=== PATIENT | female | born 1970 | race Caucasian/White ===

== ENCOUNTER 2017-01-08 08:00 | Emergency (ER) | payer OTHER ==
[2017-01-08 08:14] VITALS: BP 145/76
--- NOTE | 2017-01-08 08:38 | UC ---
Complaint Female HPI - HPI Summary HPI Summary: burning on urination x 1 day + frequency , no fever, no chills , no flank pain - History Of Current Complaint Chief Complaint: UCGU Stated Complaint: URINARY COMPLAINT Time Seen by Provider: 01/08/17 08:07 Hx Obtained From: Patient Hx Last Menstrual Period: 12/03/16 ?: No Onset/Duration: Gradual Onset, Lasting Days - 1, Still Present Timing: Constant Severity Initially: Moderate Severity Currently: Moderate Character: Burning Aggravating Factor(s): Urination Alleviating Factor(s): Nothing Associated Signs And Symptoms: Negative: Fever, Back Pain, Vaginal Bleeding/ Discharge, Vaginal Discharge, Nausea, Vomiting(# Of Episodes =), Genital Swelling, Genital Blisters - Allergies/Home Medications Allergies/Adverse Reactions: Allergies Allergy/AdvReac Type Severity Reaction Status Date / Time No Known Allergies Allergy Verified 01/08/17 08:14 Home Medications: Home Medications Ibuprofen TAB* [Advil TAB*] 400 mg PO ONCE PRN 01/08/17 [History Confirmed 01/08] PMH/Surg Hx/FS Hx/Imm Hx Cardiovascular History: Hypertension Cancer History: Breast Cancer - Surgical History Surgical History: Yes Surgery Procedure, Year, and Place: 1971 PATENT DUCTUS. 1975 SIGMOIDOSCOPY BENIGN TUMOR IN RECTUM. 1982 T & A. 2010 LEFT BREAST LUMPECTOMY [facility] - Family History Known Family History: Positive: Hypertension - Social History Alcohol Use: Occasionally Alcohol Amount: 1-2 DRINKS/MONTH Substance Use Type: None Smoking Status (MU): Never Smoked Tobacco Have You Smoked in the Last Year: No Review of Systems Constitutional: Negative Skin: Negative Eyes: Negative ENT: Negative Respiratory: Negative Gastrointestinal: Negative Genitourinary: Dysuria, Frequency Is Patient Immunocompromised?: No All Other Systems Reviewed And Are Negative: Yes Physical Exam Triage Information Reviewed: Yes Appearance: Well-Appearing, No Pain Distress, Well-Nourished Vital Signs: Initial Vital Signs Temp 97.7 F 01/08/17 08:04 Pulse 80 01/08/17 08:04 Resp 20 01/08/17 08:04 BP 145/76 01/08/17 08:04 Vital Signs Reviewed: Yes Eyes: Positive: Conjunctiva Clear ENT: Positive: Normal ENT inspection, Hearing grossly normal, Pharynx normal Neck: Positive: Supple, Nontender, No Lymphadenopathy Respiratory: Positive: Chest non-tender, Lungs clear, Normal breath sounds Cardiovascular: Positive: RRR, No Murmur, Pulses Normal Abdominal Exam: Normal Abdomen Description: Positive: Nontender, Soft. Negative: CVA Tenderness (R), CVA Tenderness (L), Distended, Guarding Bowel Sounds: Positive: Present Skin Exam: Normal Complaint Female Dx - Differential Dx/Diagnosis Provider Diagnoses: uti Discharge - Discharge Plan Condition: Stable Disposition: HOME Prescriptions: Sulfamethox/Trimethoprim DS* [Bactrim DS 800/160 TAB*] 1 tab PO BID #14 tab Patient Education Materials: Urinary Tract Infection in Women (ED) Referrals: Radha Segura NP [Primary Care Provider] - If Needed
== END 2017-01-08 08:42 | disposition home or self-care (01) ==
LOC: UCCORT 08:00
DX: N39.0 Urinary tract infection, site not specified (principal); B96.89 Other specified bacterial agents as the cause of diseases classified elsewhere; I10 Essential (primary) hypertension; Z85.3 Personal history of malignant neoplasm of breast
CPT/HCPCS: 81003; 87077; 87086; 87186; 99212; G0463

== ENCOUNTER 2017-01-11 06:18 | Day surgery (SDC) | payer OTHER ==
[~2017-01-11 06:18] MED LIST: Buffered Lidocaine 0.9% SYRIN* 5 ML/SYR SYRINGE INTRADERM ONE
[2017-01-11] MEDS ORDERED: Buffered Lidocaine 0.9% SYRIN* 5 ML/SYR SYRINGE ONE (06:53)
[2017-01-11] MEDS ORDERED: ceFAZolin 2 GM PREMIX (*) 0 ML IVPB ONE (06:53)
[2017-01-11] MEDS ORDERED: ceFOXitin 2 GM IVPREMIX* 2 GM/50 ML BAG ONE (06:56)
[2017-01-11] MEDS ORDERED: Silver Nitrate/Potassium Nitr* 1 EA STICK ONE (07:33)
[2017-01-11] MEDS ORDERED: Midazolam* 1 MG/ML 5 ML VIAL (5 MG) ONE (07:48)
[2017-01-11] MEDS ORDERED: fentaNYL* 50 MCG/ML 2 ML VIAL (100 MCG VIAL) ONE (07:48)
[2017-01-11 07:55] LABS: Hematocrit 33 % (35-47); Hemoglobin 10.2 g/dl (12.0-16.0); Mean Corpuscular HGB Conc 31 g/dl (31-36); Mean Corpuscular Hemoglobin 22 pg (27-31); Mean Corpuscular Volume 70 fL (80-97); Mean Platelet Volume 8 um3 (7.4-10.4); Red Blood Count 4.73 10^6/ul (4.0-5.4); Red Cell Distribution Width 17 % (10.5-15); White Blood Count 5.5 10^3/ul (3.5-10.8)
[2017-01-11 07:59] LABS: Comments Flag Yes
[2017-01-11 08:00] LABS: Add Diff/Slide Review? Slide Review Added
[2017-01-11] MEDS ORDERED: Ketorolac INJ* 30 MG/ML 1 ML VIAL ONE (08:02)
[2017-01-11] MEDS ORDERED: Propofol* 10 MG/ML 20 ML BTL IV PUSH ONE (08:22)
[2017-01-11 08:54] VITALS: BP 116/84
--- NOTE | 2017-01-12 00:30 | OP ---
DATE OF OPERATION: 01/11/17 - [facility] DATE OF : 70 SURGEON: Ramila Lombardi MD ANESTHESIOLOGIST: Dr. Mortensen. ANESTHESIA: Sedation. PRE-OP DIAGNOSIS: Endometrial mass. POST-OP DIAGNOSIS: Endometrial mass, probable endometrial polyp. OPERATIVE PROCEDURE: Dilation, curettage and hysteroscopic resection of endometrial mass. FLUIDS: 800 cc. URINE OUTPUT: 200 cc of clear yellow urine, deficit 152 cc. ESTIMATED BLOOD LOSS: Minimal. FINDINGS: Revealed a normal-appearing right and left tubal ostia on endometrial mass coming from the anterior uterine wall consistent with an endometrial polyp. Excellent resection of mass. COMPLICATIONS: None apparent. DISPOSITION: Stable to recovery room. DESCRIPTION OF PROCEDURE: The patient was placed in dorsal lithotomy position and then placed in universal Kings stirrups after undergoing sedation and perineum and vagina were prepped and draped in a sterile standard fashion. The patient was identified with universal protocol for correct procedure, patient, and position. Sterile self cath was placed for drainage of clear yellow urine 200 cc. Self cath was removed. Sterile speculum was inserted. Cervix was visualized, grasped on the anterior lip with a single-tooth tenaculum, dilated to #8 Hegar dilator. A hysteroscope was inserted, confirming the presence of an endometrial mass consistent with the appearance of an endometrial polyp extending from the anterior on the uterine wall. At that point, using a light resectoscope, the resection was carried out with MyoSure for complete removal of endometrial polyp. Hysteroscope was then removed. Sharp curettage was performed for excellent sampling. Hysteroscope was then reinserted and confirmed excellent sampling of the endometrial cavity. Hysteroscope was removed. Single-tooth tenaculum was removed. Sterile speculum was removed. All sponge, instrument, and blade counts were correct throughout the case. The patient tolerated the procedure well and went to recovery room in stable condition. [id number]/[facility] #: [id number] MTDD
== END 2017-01-11 09:22 | disposition home or self-care (01) ==
LOC: OR 06:18
PROVIDERS: ATTEND Obstetrics & Gynecology
DX: N84.0 Polyp of corpus uteri (principal); I10 Essential (primary) hypertension; Z79.82 Long term (current) use of aspirin; Z85.3 Personal history of malignant neoplasm of breast
CPT/HCPCS: 36415; 81025; 85025; 86850; 86900; 86901; 88305; A9270-GY; J0690; J0694; J1885; J2250; J2704; J3010

== ENCOUNTER 2017-04-02 17:37 | Emergency (ER) | payer OTHER ==
[2017-04-02 18:12] VITALS: BP 139/94
--- NOTE | 2017-04-02 18:22 | UC ---
Complaint Female HPI - HPI Summary HPI Summary: ONE DAY OF URGENCY, FREQUENCY DYSURIA. - History Of Current Complaint Hx Obtained From: Patient, Family/Computer Training Specialist Hx Last Menstrual Period: 03/23/17 Onset/Duration: Gradual Onset, Lasting Hours Timing: Intermittent Severity Initially: Mild Severity Currently: Mild Character: Dull Aggravating Factor(s): Urination Associated Signs And Symptoms: Negative: Fever, Back Pain, Vaginal Bleeding/ Discharge, Vaginal Discharge, Nausea - Risk Factors Ectopic Risk Factor: Negative Ovarian Torsion Risk Factor: Negative <Fawad Grace - Last Filed: 04/02/17 18:19> <Maia Pablo - Last Filed: 04/02/17 18:23> - History Of Current Complaint Chief Complaint: UCGU Stated Complaint: URINARY Time Seen by Provider: 04/02/17 18:09 - Allergies/Home Medications Allergies/Adverse Reactions: Allergies Allergy/AdvReac Type Severity Reaction Status Date / Time No Known Allergies Allergy Verified 04/02/17 18:06 Home Medications: Home Medications Calcium Carbonate-Cholecalcife [Calcium 600 + D 600-200 mg-Unit] 1 tab PO BID [History Confirmed 04/02/17] [place]-3 Fatty Acids (Nf) [Fish Oil (NF)] 1,000 mg PO DAILY 04/02/17 [History Confirmed 04/02/17] PMH/Surg Hx/FS Hx/Imm Hx Previously Healthy: Yes - Surgical History Surgical History: Yes Surgery Procedure, Year, and Place: Uterine Polyp, 2016, [facility] [place]; Left Breast Lumpectomy, 2010, [place]; T&A, 1982; Sigmoidoscopy with Benign Tumor in Rectum, 1975; Patent Ductus Arteriosus, 1971 - Family History Known Family History: Positive: Hypertension - Social History Occupation: Employed Full-time Lives: With Family Alcohol Use: Occasionally Alcohol Amount: 1-2 DRINKS/MONTH Substance Use Type: None Smoking Status (MU): Never Smoked Tobacco Have You Smoked in the Last Year: No <Fawad Grace - Last Filed: 04/02/17 18:19> Review of Systems Constitutional: Negative Skin: Negative Eyes: Negative ENT: Negative Respiratory: Negative Cardiovascular: Negative Gastrointestinal: Negative Genitourinary: Dysuria, Frequency, Urgency Motor: Negative Neurovascular: Negative Musculoskeletal: Negative Neurological: Negative Psychological: Negative Is Patient Immunocompromised?: No All Other Systems Reviewed And Are Negative: Yes <Fawad Grace - Last Filed: 04/02/17 18:19> Physical Exam Triage Information Reviewed: Yes Appearance: Well-Appearing, No Pain Distress, Well-Nourished Vital Signs: Initial Vital Signs Temp 97.6 F 04/02/17 18:04 Pulse 76 04/02/17 18:04 Resp 16 04/02/17 18:04 BP 139/94 04/02/17 18:04 Pulse Ox 100 04/02/17 18:04 Vital Signs Reviewed: Yes Eye Exam: Normal ENT Exam: Normal ENT: Positive: Hearing grossly normal Dental Exam: Normal Neck exam: Normal Neck: Positive: Supple, Nontender, No Lymphadenopathy Respiratory Exam: Normal Respiratory: Positive: Chest non-tender, Lungs clear, Normal breath sounds, No respiratory distress, No accessory muscle use Cardiovascular Exam: Normal Cardiovascular: Positive: RRR, No Murmur, Pulses Normal, Brisk Capillary Refill Abdominal Exam: Normal Abdomen Description: Positive: Nontender, No Organomegaly, Soft. Negative: CVA Tenderness (R), CVA Tenderness (L) Musculoskeletal Exam: Normal Neurological Exam: Normal Psychological Exam: Normal Skin Exam: Normal <Fawad Grace - Last Filed: 04/02/17 18:19> Vital Signs: Initial Vital Signs Temp 97.6 F 04/02/17 18:04 Pulse 76 04/02/17 18:04 Resp 16 04/02/17 18:04 BP 139/94 04/02/17 18:04 Pulse Ox 100 04/02/17 18:04 <Maia Pablo - Last Filed: 04/02/17 18:23> Complaint Female Dx - Differential Dx/Diagnosis Differential Diagnosis/HQI/PQRI: Urinary Tract Infection Provider Diagnoses: URINARY TRACT INFECTION <Fawad Grace - Last Filed: 04/02/17 18:19> Discharge <Fawad Grace - Last Filed: 04/02/17 18:19> <Maia Pablo - Last Filed: 04/02/17 18:23> - Discharge Plan Condition: Stable Disposition: HOME Prescriptions: Phenazopyridine TAB* [Pyridium 100 mg TAB*] 100 mg PO TID PRN #15 tab PRN Reason: Pain Sulfamethox/Trimethoprim DS* [Bactrim DS 800/160 TAB*] 1 tab PO BID #10 tab Patient Education Materials: Urinary Tract Infection in Women (ED) Referrals: Radha Segura NP [Primary Care Provider] - Attestation Statement User Type: Provider - I was available for consult. This patient was seen by the [facility]. The patient was not presented to, seen by, or examined by me. -Alyssa <Maia Pablo - Last Filed: 04/02/17 18:23>
== END 2017-04-02 18:19 | disposition home or self-care (01) ==
LOC: UCCORT 17:37
DX: N39.0 Urinary tract infection, site not specified (principal); B96.89 Other specified bacterial agents as the cause of diseases classified elsewhere
CPT/HCPCS: 81003; 87077; 87086; 87186; 99212; G0463

== ENCOUNTER 2017-08-20 08:27 | Day surgery (SDC) | payer OTHER ==
[2017-08-20] MEDS ORDERED: ceFAZolin 2 GM PREMIX (*) 2 GM/50 ML BAG IVPB ONE (08:46)
[2017-08-20] MEDS ORDERED: Buffered Lidocaine 0.9% SYRIN* 5 ML/SYR SYRINGE ONE (08:46)
[2017-08-20] MEDS ORDERED: Bupivacaine 0.25% SDV* 30 ML ONE (10:16)
[2017-08-20] MEDS ORDERED: fentaNYL* 50 MCG/ML 2 ML VIAL (100 MCG VIAL) ONE (10:32)
[2017-08-20] MEDS ORDERED: Propofol* 10 MG/ML 20 ML BTL IV PUSH ONE (10:32)
[2017-08-20] MEDS ORDERED: Lidocaine 2% PF * 5 ML VIAL ONE (10:32)
[2017-08-20] MEDS ORDERED: Naloxone* 0.4 MG/ML 1 ML VIAL IV PRN (10:53)
[2017-08-20] MEDS ORDERED: Acetaminophen TAB* 325 MG PO PRN (10:53)
[2017-08-20] MEDS ORDERED: oxyCODONE TAB* 5 MG TAB PO PRN (10:53)
[2017-08-20] MEDS ORDERED: fentaNYL* 50 MCG/ML 2 ML VIAL (100 MCG VIAL) IV PRN (10:53)
[2017-08-20 12:52] VITALS: BP 126/77
--- NOTE | 2017-08-20 14:37 | OP ---
DATE OF OPERATION: 08/20/17 - [facility] DATE OF : 70 SURGEON: Javier Ledezma MD. USPS LETTER CARRIER: CORINNE Freedman. ANESTHESIOLOGIST: Dr. Beck. ANESTHESIA: General. 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 POST-OP DIAGNOSIS: Left ulnar nerve cubital tunnel syndrome. PROCEDURE PERFORMED: Left ulnar nerve decompression at the elbow with anterior transposition. INDICATIONS: Tanja has had progressive symptoms in the ring and small fingers. It seemed to localize to the elbow. We talked about risks and benefits. She wanted to proceed with decompression of the nerve to see if she gets some symptom relief. ESTIMATED BLOOD LOSS: 5 mL. COMPLICATIONS: None. FINDINGS: After decompression, there was instability of the ulnar nerve, so I transposed the nerve. DESCRIPTION OF PROCEDURE: Tanja was seen in the preoperative holding area. The correct side, site, and procedure were identified. We came back to the operating room. The arm was prepped and draped in the usual fashion. A time- out was performed. I exsanguinated the arm with an Esmarch and the tourniquet was inflated to 250 mmHg. I began by making a curvilinear incision centered over Fraire's ligament and extended proximally and distally in line with the nerve. Dissection was carried down through the subcutaneous tissue. The medial antebrachial cutaneous nerve was not encountered. I went ahead and released the fascia just proximal to Fraire's ligament. An appendiceal retractor was placed and the fascia overlying the nerve was released all the way past the arcade of [place]. I then came distally and released the Fraire's ligament. It was obvious that the nerve was frankly compressed under the ligament. I then released the superficial FCU fascia. I split the 2 ends of the FCU and the released the deep fascial, subfascial layer. At this point, there was no more compression on the nerve. I flexed and extended the elbow. The nerve was subluxing upon the medial epicondyle. I therefore performed a neurolysis about the nerve. A fascial loop was used to retract the nerve gently to assist with this. The motor branches to the FCU were identified and mobilized to allow for length. The medial intermuscular septum was excised. The FCU fascia was excised. I went ahead and made double opposing, step cut type fascial flaps in the flexor pronator fascia. The intermuscular septi were excised. I then transposed the nerve anterior on to the muscular bed. The two facial flaps were then sewn end-to-end to keep the nerve in the transposed position. There was absolutely no compression or kinking of the nerve. I checked to make sure there was no kinking proximally or distally. I did excise a little bit of the humeral head of the FCU just to let the nerve lie in a little bit straighter position. Ultimately, there was no compression or kinking of the nerves. So, we irrigated out the wound. The subcutaneous tissue was reapproximated with 3- 0 Vicryl. Skin was closed with 3-0 Monocryl and Steri-Strips. 0.25% Marcaine was infiltrated in to the operative area. The wound was then dressed with Xeroform, 4x4s, ABD, sterile Webril, and a long arm splint, with a lateral buttress applied. She was then awoken up and taken to the recovery room in stable condition. [id number]/[facility] #: [id number] [facility] HOSPITALJoss
== END 2017-08-20 12:56 | disposition home or self-care (01) ==
LOC: OR 08:27
PROVIDERS: ATTEND Orthopaedic Surgery Hand Surgery
DX: G56.22 Lesion of ulnar nerve, left upper limb (principal); I10 Essential (primary) hypertension; Z85.3 Personal history of malignant neoplasm of breast; M19.90 Unspecified osteoarthritis, unspecified site
CPT/HCPCS: 81025; J0690; J2704; J3010

== ENCOUNTER 2018-06-01 10:38 | Emergency (ER) | payer OTHER ==
--- OUTSIDE RECORDS SUMMARY | 2018-06-01 10:48 | XMS REPORT | Continuity of Care Document ---
:1970 External Reference #:[id number] Author Name Lucina Caro Care Team Providers Name Role Phone Desirae Garcia MD Primary Care Physician Unavailable Payers Date Identification Numbers Payment Provider Subscriber Policy Number: [id number] [facility] Tanja Sparks Group Number: [id number] [address] PayID: [id number] [place] [address] Effective: 2008 Policy Number: [id number] [facility] Tanja Sparks PayID: [id number] [address] [place] [address] Advance Directives Description No Information Available Problems Date Description Provider Status Onset: 05/24/2015 Essential hypertension Radha Segura, N.P. 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 ALS, Hyperlipidemia, HTN Second Brother 50 (half brother), SD (48), Hyperlipidemia Social History Type Date Description Comments Sex Unknown Marital Status Occupation Lead Clinical Asst for Practice Management at [employer] Use Currently consumes Twice monthly alcohol Tobacco Use Start: Unknown Patient has never smoked Smoking Status Reviewed: 05/31/18 Patient has never smoked Exercise Type/Frequency Exercises regularly 3 - 6 times weekly Allergies, Adverse Reactions, Alerts Description No Known Drug Allergies Medications Medication Date Status Form Strength Qnty SIG Indications Ordering Provider Ketoconazole 05/31 Active Cream 2% 60gm apply once B35.4 daily to Imelda affected N.P. area Tramadol HCL 08/20 Active Tablets 50mg 30tab 1-2 s tablets by anel Ledezma MD every 6 hours as needed pain Losartan 08/24 Active Tablets 100mg 90tab Take 1 Radha Ferrell s Tablet By Imelda Mouth N.P. Every Day Fish Oil Active Capsules 1000mg 1 tbsp qd Unknown Ibuprofen Active Tablets 200-38mg prn Aspir-[address] 81mg 1 po qd Unknown / Calcium 600 Active Tablets 600mg 1 po qd Multi Complete Active Capsules daily Unknown Trazodone HCL 11/14 Hx Tablets 50mg 30tab 1 tablet G47.00 s at bedtime Varn, - as needed N.P. 07/20 Cipro 11/14 Hx Tablets 250mg 14tab one by N39.0 s sara Segura, - twice N.P. 01 daily for 7 days Cipro 11/18 Hx Tablets 250mg 6tabs one by roxyuth Imelda, - twice N.P. 11/21 daily for 3 days Cipro 08/24 Hx Tablets 250mg 14tab one by 788.41 Radha /2015 s roxyuth Imelda, - twice N.P. 08/31 daily for 7 days Ciprofloxacin HCL 07/16 Hx Tablets 250mg 14tab one by 788.41 Radha /2014 s mouth Imelda, - twice a N.P. 07/23 day for days Cipro 10/09 Hx Tablets 500mg 6tabs one tablet 788.41 twice Pro, - daily for M.D. 10/14 3 days. Losartan 10/09 Hx Tablets 100-25mg 90tab Take 1 Radha Potassium/Hydroch s Tablet Varn, lorothiazide - Daily N.P. 08/24 Losartan 09/06 Hx Tablets 100mg 30tab 1 po qd 401.1 [place] Potassium s Sharee Walker M.D., 10/09 FAC Anucort-HC 07/12 Hx Suppository 25mg 30uni insert 578.1 ts suppositor Denise - y in M.D., 03/11 rectum FAC twice a day as needed Diflucan 09/01 Hx Tablets 150mg 2tabs sig 1 po repeat in Denise, - 3 days if M.D., 10/31 needed FAC Ramipril 07/05 Hx Capsules 5mg 90cap 1 by mouth s daily Sharee Walker M.D., 09/06 FAC Hydrochlorothiazi 05/20 Hx Tablets 25mg 90tab Take One Floresita s Tablet By Denise - Mouth M.DHardik, 10/09 Every Day Tamoxifen Citrate Hx Tablets 20mg 30tab 1 po qd Unknown /0000 s - 05/15 Vitamin D High Hx Capsules 4000Units daily Unknown Potency /0000 - 07/20 Immunizations Description No Information Available Vital Signs Date Vital Result Comment 05/31/2018 4:21pm Height 65.5 inches 5'5.50" Weight 200.00 lb Heart Rate 78 /min BP Systolic 136 mmHg BP Diastolic 84 mmHg Body Temperature 98.1 F O2 % BldC Oximetry 97 % BMI (Body Mass Index) 32.8 kg/m2 01/01/2018 11:29am Height 65.5 inches 5'5.50" Pain Level 0 11/27/2017 8:41am Height 65.5 inches 5'5.50" Weight 195.00 lb Heart Rate 81 /min BP Systolic 122 mmHg BP Diastolic 80 mmHg Body Temperature 98.1 F O2 % BldC Oximetry 96 % BMI (Body Mass Index) 32.0 kg/m2 Waist Circumference 38 10/02/2017 4:22pm Height 67 inches 5'7" Weight 193.00 lb BP Systolic Sitting 140 mmHg BP Diastolic Sitting 88 mmHg Respiratory Rate 16 /min Body Temperature 98.0 F Pain Level 0 BMI (Body Mass Index) 30.2 kg/m2 08/31/2017 8:32am Height 67 inches 5'7" Heart Rate 76 /min BP Systolic 132 mmHg BP Diastolic 80 mmHg Respiratory Rate 16 /min Body Temperature 97.6 F Pain Level 2 08/14/2017 3:09pm Height 67 inches 5'7" Heart Rate 89 /min BP Systolic 130 mmHg BP Diastolic 80 mmHg Respiratory Rate 16 /min Body Temperature 98.3 F Pain Level 1 07/20/2017 10:58am Height 67 inches 5'7" Weight 185.00 lb Heart Rate 82 /min Respiratory Rate 13 /min Body Temperature 99.1 F Pain Level 5 BMI (Body Mass Index) 29.0 kg/m2 07/10/2017 1:18pm Weight 192.00 lb Heart Rate 92 /min BP Systolic 132 mmHg BP Diastolic 68 mmHg Body Temperature 98.5 F O2 % BldC Oximetry 98 % 11/14/2016 8:48am Height 65 inches 5'5" Weight 169.00 lb Heart Rate 79 /min BP Systolic Sitting 120 mmHg BP Diastolic Sitting 68 mmHg Body Temperature 98.3 F O2 % BldC Oximetry 97 % BMI (Body Mass Index) 28.1 kg/m2 05/15/2016 8:45am Weight 170.00 lb Heart Rate 71 /min BP Systolic Sitting 128 mmHg BP Diastolic Sitting 80 mmHg Body Temperature 97.3 F O2 % BldC Oximetry 99 % 11/11/2015 9:13am Height 65 inches 5'5" Weight 166.75 lb Heart Rate 84 /min BP Systolic Sitting 128 mmHg BP Diastolic Sitting 83 mmHg O2 % BldC Oximetry 98 % BMI (Body Mass Index) 27.7 kg/m2 11/16/2014 12:59pm Weight 167.00 lb Heart Rate 83 /min BP Systolic Sitting 138 mmHg BP Diastolic Sitting 85 mmHg Body Temperature 98.7 F 08/24/2014 4:22pm Height 65.5 inches 5'5.50" Weight 166.00 lb Heart Rate 97 /min BP Systolic 138 mmHg BP Diastolic 89 mmHg Body Temperature 98.1 F BMI (Body Mass Index) 27.2 kg/m2 05/18/2014 3:25pm Height 65.5 inches 5'5.50" Weight 166.50 lb Heart Rate 90 /min BP Systolic Sitting 122 mmHg BP Diastolic Sitting 76 mmHg Body Temperature 98.8 F BMI (Body Mass Index) 27.3 kg/m2 10/17/2013 12:00pm Weight 165.00 lb Heart Rate 88 /min BP Systolic Sitting 138 mmHg BP Diastolic Sitting 80 mmHg 07/16/2013 8:49am Weight 171.00 lb Heart Rate 88 /min BP Systolic Sitting 120 mmHg BP Diastolic Sitting 74 mmHg Body Temperature 98.5 F 04/18/2013 9:42am Height 65.75 inches 5'5.75" Weight 159.00 lb Heart Rate 88 /min BP Systolic Sitting 122 mmHg BP Diastolic Sitting 74 mmHg BMI (Body Mass Index) 25.9 kg/m2 10/14/2012 9:12am Weight 162.00 lb Heart Rate 76 /min BP Systolic Sitting 124 mmHg BP Diastolic Sitting 80 mmHg 10/09/2012 9:03am Weight 164.00 lb Heart Rate 80 /min BP Systolic Sitting 124 mmHg BP Diastolic Sitting 70 mmHg Body Temperature 98.9 F 03/11/2012 10:56am Height 67 inches 5'7" Weight 160.00 lb Heart Rate 74 /min BP Systolic Sitting 122 mmHg BP Diastolic Sitting 74 mmHg BMI (Body Mass Index) 25.1 kg/m2 09/07/2011 11:27am Height 67 inches 5'7" Weight 155.00 lb Heart Rate 72 /min BP Systolic Sitting 138 mmHg BP Diastolic Sitting 80 mmHg BMI (Body Mass Index) 24.3 kg/m2 07/13/2011 9:54am Height 67 inches 5'7" Weight 157.00 lb Heart Rate 76 /min BP Systolic Sitting 138 mmHg BP Diastolic Sitting 80 mmHg BMI (Body Mass Index) 24.6 kg/m2 03/10/2011 11:01am Height 67 inches 5'7" Weight 166.00 lb Heart Rate 64 /min BP Systolic Sitting 110 mmHg BP Diastolic Sitting 72 mmHg BMI (Body Mass Index) 26.0 kg/m2 10/31/2010 1:14pm Height 67 inches 5'7" Weight 181.00 lb Heart Rate 66 /min BP Systolic Sitting 122 mmHg BP Diastolic Sitting 74 mmHg BMI (Body Mass Index) 28.3 kg/m2 09/01/2010 10:05am Height 67 inches 5'7" Weight 188.75 lb Heart Rate 72 /min BP Systolic 130 mmHg BP Diastolic 86 mmHg BMI (Body Mass Index) 29.6 kg/m2 07/05/2010 1:59pm Weight 192.75 lb Heart Rate 72 /min BP Systolic 140 mmHg BP Diastolic 84 mmHg 05/20/2010 9:47am Weight 192.00 lb Heart Rate 80 /min BP Systolic 140 mmHg BP Diastolic 86 mmHg 05/04/2010 10:11am Weight 194.00 lb Heart Rate 80 /min BP Systolic 146 mmHg BP Diastolic 94 mmHg O2 % BldC Oximetry 99 % Results Test Date Facility Test Result H/L Range Note Lipid Profile 11/23/2017 [facility] Triglycerides 227 mg/dL 1 (Trig/Chol/HDL) [address] [place] [address] [phone] Cholesterol 211 mg/dL 2 HDL Cholesterol 45.0 mg/dL 3 LDL Cholesterol 121 mg/dL 4 Comp Metabolic Panel 11/23/2017 [facility] Sodium 139 mmol/L N 135-[address] [place] [address] [phone] Potassium 3.9 mmol/L N 3.5-5.0 Chloride 102 mmol/L N 101-111 Co2 Carbon Dioxide 29 mmol/L N 22-32 Anion Gap 8 mmol/L N 2-11 Glucose 90 mg/dL N 70-100 Blood Urea Nitrogen 16 mg/dL N 6-24 Creatinine 0.86 mg/dL N 0.51-0.95 BUN/Creatinine Ratio 18.6 N 8-20 Calcium 9.1 mg/dL N 8.6-10.3 Total Protein 6.4 g/dL N 6.4-8.9 Albumin 4.0 g/dL N 3.2-5.2 Globulin 2.4 g/dL N 2-4 Albumin/Globulin Ratio 1.7 N 1-3 Total Bilirubin 0.40 mg/dL N 0.2-1.0 Alkaline Phosphatase 49 U/L N 34-104 Alt 15 U/L N 7-52 Ast 15 U/L N 13-39 Egfr Non- 70.7 >60 Egfr 85.6 >60 5 Urine Culture And 04/02/2017 [facility] Urine SEE RESULT 6 , [address] [place] [address] [phone] CBC Auto Diff 01/11/2017 [facility] White Blood 5.5 10^3/uL N 3.5-[address] Count 0.8 [place] [address] [phone] Red Blood Count 4.73 10^6/uL N 4.0-5.4 Hemoglobin 10.2 g/dL Low 12.0-16.0 Hematocrit 33 % Low 35-47 Mean Corpuscular Volume 70 fL Low 80-97 Mean Corpuscular Hemoglobin 22 pg Low 27-31 Mean Corpuscular HGB Conc 31 g/dL N 31-36 Red Cell Distribution Width 17 % High 10.5-15 Platelet Count 303 10^3/uL N 150-450 Mean Platelet Volume 8 um3 N 7.4-10.4 Abs Neutrophils 3.0 10^3/uL N 1.5-7.7 Abs Lymphocytes 1.8 10^3/uL N 1.0-4.8 Abs Monocytes 0.5 10^3/uL N 0-0.8 Abs Eosinophils 0.1 10^3/uL N 0-0.6 Abs Basophils 0.1 10^3/uL N 0-0.2 Abs Nucleated RBC 0 10^3/uL N Granulocyte % 54.7 % N 38-83 Lymphocyte % 32.8 % N 25-47 Monocyte % 9.7 % High 1-9 Eosinophil % 1.9 % N 0-6 Basophil % 0.9 % N 0-2 Nucleated Red Blood Cells % 0 N Type & Screen 01/11/2017 [facility] Patient Blood Type A Positive [address] [place] [address] [phone] Antibody Screen NEGATIVE N Urine Culture And 01/08/2017 [facility] Urine Culture SEE RESULT [address] [place] [address] [phone] Urine Culture And 11/14/2016 [facility] Urine Culture SEE RESULT [address] [place] [address] [phone] Ua Routine 11/14/2016 [facility] Ua Specific 1.005 [place] Ua PH 7 Ua Color pale kaitlin Ua Appera clear Ua WBC 1+ Ua Protein neg Ua Glucose neg Ua Ketones neg Ua Bilirubin neg Ua Urobilinogen normal Ua Nitrite neg Ua Occult Blood trace Lipid Profile 11/06/2016 [facility] Triglycerides 97 mg/dL N 11 (Trig/Chol/HDL) [address] [place] [address] [phone] Cholesterol 174 mg/dL N 12 HDL Cholesterol 48.8 mg/dL N 13 LDL Cholesterol 106 mg/dL N 14 Comp Metabolic Panel 11/06/2016 [facility] Sodium 138 mmol/L N 133-145 [address] [place] [address] [phone] Potassium 3.7 mmol/L N 3.5-5.0 Chloride 104 mmol/L N 101-111 Co2 Carbon Dioxide 30 mmol/L N 22-32 Anion Gap 4 mmol/L N 2-11 Glucose 91 mg/dL N 70-100 Blood Urea Nitrogen 18 mg/dL N 6-24 Creatinine 0.80 mg/dL N 0.51-0.95 BUN/Creatinine Ratio 22.5 High 8-20 Calcium 8.9 mg/dL N 8.6-10.3 Total Protein 6.1 g/dL Low 6.4-8.9 Albumin 3.8 g/dL N 3.2-5.2 Globulin 2.3 g/dL N 2-4 Albumin/Globulin Ratio 1.7 N 1-3 Total Bilirubin 0.30 mg/dL N 0.2-1.0 Alkaline Phosphatase 41 U/L N 34-104 Alt 18 U/L N 7-52 Ast 17 U/L N 13-39 Egfr Non- 77.2 N >60 Egfr 99.3 N >60 15 Comp Metabolic Panel 05/14/2015 [facility] Sodium 140 mmol/L N 133-145 [address] [place] [address] [phone] Potassium 3.9 mmol/L N 3.5-5.0 Chloride 102 mmol/L N 101-111 Co2 Carbon Dioxide 33 mmol/L High 22-32 Anion Gap 5 mmol/L N 2-11 Glucose 89 mg/dL N 70-100 Blood Urea Nitrogen 14 mg/dL N 6-24 Creatinine 0.82 mg/dL N 0.51-0.95 BUN/Creatinine Ratio 17.1 N 8-20 Calcium 9.3 mg/dL N 8.6-10.3 Total Protein 6.5 g/dL N 6.4-8.9 Albumin 4.2 g/dL N 3.2-5.2 Globulin 2.3 g/dL N 2-4 Albumin/Globulin Ratio 1.8 N 1-3 Total Bilirubin 0.50 mg/dL N 0.2-1.0 Alkaline Phosphatase 45 U/L N 34-104 Alt 14 U/L N 7-52 Ast 17 U/L N 13-39 Egfr Non- 75.7 N >60 Egfr 97.4 N >60 16 Lipid Profile 05/14/2015 [facility] Triglycerides 147 mg/dL N 17 (Trig/Chol/HDL) [address] [place] [address] [phone] Cholesterol 180 mg/dL N 18 HDL Cholesterol 46.6 mg/dL N 19 LDL Cholesterol 104 mg/dL N 20 Laboratory test 11/16/2014 [facility] Urine Culture And SEE RESULT [address] [place] [address] [phone] Ua Routine 11/16/2014 [facility] Ua Specific [place] 1.010 Ua PH 5 Ua Color pale yellow Ua Appera clear Ua WBC neg Ua Protein neg Ua Glucose neg Ua Ketones neg Ua Bilirubin neg Ua Urobilinogen 0.2 Ua Nitrite neg Ua Occult Blood neg Urinalysis Profile 08/24/2014 [facility] Urine Color Yellow [address] [place] [address] [phone] Urine Appearance Cloudy N Urine Specific [place] 1.009 Low 1.010-1.030 Urine pH 6.0 N 5-9 Urine Urobilinogen Negative N Negative Urine Ketones Trace Abnormal Negative Urine Protein Negative N Negative Urine Leukocytes 3+ Abnormal Negative Urine Blood Negative N Negative Urine Nitrite Negative N Negative Urine Bilirubin Negative N Negative Urine Glucose Negative N Negative Urine White Blood Cell 1+(6-10/hpf) Abnormal Absent Urine Red Blood Cell Trace(0-2/hpf) N Absent Urine Bacteria 1+ Abnormal Absent Urine Squamous Epithelial Cell Present Abnormal Absent Urine Culture And 08/24/2014 [facility] Urine Culture (SEE NOTE ) [address] [place] [address] [phone] Ua Routine 08/24/2014 [facility] Ua Specific 1.010 [place] Ua PH 5 Ua Color yellow Ua Appera clear Ua WBC moderate Ua Protein negative Ua Glucose negative Ua Ketones moderate Ua Bilirubin negative Ua Urobilinogen normal Ua Nitrite neagtive Ua Occult Blood negative Lipid Profile 04/20/2014 [facility] Triglycerides 220 mg/dL N 23 (Trig/Chol/HDL) [address] [place] [address] [phone] Cholesterol 154 mg/dL N 24 HDL Cholesterol 47.1 mg/dL N 25 LDL Cholesterol 63 mg/dL N 26 Comp Metabolic Panel 04/20/2014 [facility] Sodium 141 mmol/L N 133-[address] [place] [address] [phone] Potassium 3.9 mmol/L N 3.5-5.0 Chloride 103 mmol/L N 101-111 Co2 Carbon Dioxide 31 mmol/L N 22-32 Anion Gap 7 mmol/L N 2-11 Glucose 92 mg/dL N 70-100 Blood Urea Nitrogen 17 mg/dL N 6-24 Creatinine 0.71 mg/dL N 0.51-0.95 BUN/Creatinine Ratio 23.9 High 8-20 Calcium 8.9 mg/dL N 8.6-10.3 Total Protein 6.0 g/dL Low 6.4-8.9 Albumin 3.8 g/dL N 3.2-5.2 Globulin 2.2 g/dL N 2-4 Albumin/Globulin Ratio 1.7 N 1-3 Total Bilirubin 0.30 mg/dL N 0.2-1.0 Alkaline Phosphatase 36 U/L N 34-104 Alt 12 U/L N 7-52 Ast 15 U/L N 13-39 Egfr Non- 89.8 N >60 Egfr 115.5 N >60 27 CBC Auto Diff 04/20/2014 [facility] White Blood 6.7 10^3/uL N 4.8-10.[address] [place] [address] [phone] Red Blood Count 4.39 10^6/uL N 4.0-5.4 Hemoglobin 12.9 g/dL N 12.0-16.0 Hematocrit 38 % N 35-47 Mean Corpuscular Volume 87 fL N 80-97 Mean Corpuscular Hemoglobin 29 pg N 27-31 Mean Corpuscular HGB Conc 34 g/dL N 31-36 Red Cell Distribution Width 15 % N 10.5-15 Platelet Count 208 10^3/uL N 150-450 Mean Platelet Volume 8 um3 N 7.4-10.4 Abs Neutrophils 3.9 10^3/uL N 1.5-7.7 Abs Lymphocytes 2.2 10^3/uL N 1.0-4.8 Abs Monocytes 0.3 10^3/uL N 0-0.8 Abs Eosinophils 0.3 10^3/uL N 0-0.6 Abs Basophils 0 10^3/uL N 0-0.2 Abs Nucleated RBC 0 10^3/uL N Granulocyte % 58.1 % N 38-83 Lymphocyte % 32.7 % N 25-47 Monocyte % 4.8 % N 1-9 Eosinophil % 3.8 % N 0-6 Basophil % 0.6 % N 0-2 Nucleated Red Blood Cells % 0 N Laboratory test 04/20/2014 [facility] Vitamin D 43 pg/mL N 18- 78 [address] 1,[place] [address] [phone] Urine Culture And 07/16/2013 [facility] Urine Culture (SEE [address] NOTE) [place] [address] [phone] Ua Routine 07/16/2013 [facility] Ua Specific 1.010 [place] Ua PH 5 Ua Color pale Ua Appera cloudy Ua WBC lg+ Ua Protein neg Ua Glucose neg Ua Ketones neg Ua Bilirubin neg Ua Urobilinogen neg Ua Nitrite neg Ua Occult Blood small +25 Lipid Profile 04/08/2013 [facility] Triglycerides 141 mg/dL 40-200 (Trig/Chol/HDL) [address] [place] [address] [phone] Cholesterol 176 mg/dL Less than 200 HDL Cholesterol 46 mg/dL 40-60 30 Cholesterol/HDL Ratio 3.8 Average 1-4.44 LDL Cholesterol 101.8 High Less Than 100 31 Vitamin D, 25 04/08/2013 [facility] 25-Hydroxy Vitamin <4.0 ng/ mL Hydroxy [address] [place] [address] [phone] 25-Hydroxy Vitamin D3 50 ng/mL 25-Hydroxy Vitamin D Total 50 ng/mL 32 CBC Auto Diff 04/08/2013 [facility] White Blood 5.8 10^3/uL 4.8-10.[address] [place] [address] [phone] Red Blood Count 4.69 10^6/uL 4.0-5.4 Hemoglobin 14.1 g/dL 12.0-16.0 Hematocrit 40 % 35-47 Mean Corpuscular Volume 86 fL 80-97 Mean Corpuscular Hemoglobin 30 pg 27-31 Mean Corpuscular HGB Conc 35 g/dL 31-36 Red Cell Distribution Width 14 % 10.5-15 Platelet Count 217 10^3/uL 150-450 Mean Platelet Volume 8 um3 7.4-10.4 Abs Neutrophils 3.5 10^3/uL 1.5-7.7 Abs Lymphocytes 1.8 10^3/uL 1.0-4.8 Abs Monocytes 0.3 10^3/uL 0-0.8 Abs Eosinophils 0.2 10^3/uL 0-0.6 Abs Basophils 0 10^3/uL 0-0.2 Abs Nucleated RBC 0.01 10^3/uL Granulocyte % 60.3 % 38-83 Lymphocyte % 30.5 % 25-47 Monocyte % 4.9 % 1-9 Eosinophil % 3.8 % 0-6 Basophil % 0.5 % 0-2 Nucleated Red Blood Cells % 0.1 Comp Metabolic Panel 04/08/2013 [facility] Sodium 135 mmol/L 133-145 [address] [place] [address] [phone] Potassium 3.6 mmol/L 3.5-5.0 Chloride 99 mmol/L Low 101-111 Co2 Carbon Dioxide 31.0 mmol/L 22-32 Anion Gap 5.0 mmol/L 2-11 Glucose 100 mg/dL 70-100 Blood Urea Nitrogen 14 mg/dL 6-24 Creatinine 0.80 mg/dL 0.50-1.40 BUN/Creatinine Ratio 17.5 8-20 Calcium 9.0 mg/dL 8.1-9.9 Total Protein 6.2 g/dL 6.2-8.1 Albumin 3.8 g/dL 3.6-5.4 Globulin 2.4 g/dL 2-4 Albumin/Globulin Ratio 1.6 1-3 Total Bilirubin 0.7 mg/dL 0.4-1.5 Alkaline Phosphatase 36 U/L 30-110 Alt 18 U/L 14-54 Ast 21 U/L 12-42 Egfr Non- 78.7 >60 Egfr 101.2 >60 33 Urine Culture And 10/09/2012 [facility] Urine Culture (SEE NOTE ) [address] [place] [address] [phone] Ua Routine 10/09/2012 [facility] Ua Specific 1.005 [place] Ua PH 7 Ua Color pale Ua Appera cloudy Ua WBC small+ Ua Protein neg Ua Glucose neg Ua Ketones neg Ua Bilirubin neg Ua Urobilinogen neg Ua Nitrite neg Ua Occult Blood non hem trace BMP Basic Metabolic 07/18/2012 [facility] Sodium 139 mmol/L 133-145 Panel [address] [place] [address] [phone] Potassium 3.3 mmol/L Low 3.5-5.0 Chloride 99 mmol/L Low 101-111 Co2 Carbon Dioxide 32.0 mmol/L 22-32 Anion Gap 8.0 mmol/L 2-11 Glucose 121 mg/dL High 70-100 Blood Urea Nitrogen 14 mg/dL 6-24 Creatinine 0.80 mg/dL 0.50-1.40 BUN/Creatinine Ratio 17.5 8-20 Calcium 9.4 mg/dL 8.1-9.9 Egfr Non- 79.0 >60 Egfr 101.7 >60 35 Laboratory test 04/19/2012 [facility] TSH (Thyroid 1.57 0.34- 5.60 finding 101 [facility] Stimulating Horm) miu/[place] [address] [phone] Lipid Profile 04/19/2012 [facility] Triglycerides 123 mg/dL 40-200 (Trig/Chol/HDL) [address] [place] [address] [phone] Cholesterol 169 mg/dL Less than 200 HDL Cholesterol 42 mg/dL 40-60 36 Cholesterol/HDL Ratio 4.0 Average 1-4.44 LDL Cholesterol 102.4 mg/dL High Less Than 100 37 Comp Metabolic Panel 04/19/2012 [facility] Sodium 139 mmol/L 133-145 [address] [place] [address] [phone] Potassium 3.2 mmol/L Low 3.5-5.0 Chloride 101 mmol/L 101-111 Co2 Carbon Dioxide 33.0 mmol/L High 22-32 Anion Gap 5.0 mmol/L 2-11 Glucose 91 mg/dL 70-100 Blood Urea Nitrogen 12 mg/dL 6-24 Creatinine 0.70 mg/dL 0.50-1.40 BUN/Creatinine Ratio 17.1 8-20 Calcium 8.9 mg/dL 8.1-9.9 Total Protein 6.0 g/dL Low 6.2-8.1 Albumin 3.7 g/dL 3.6-5.4 Globulin 2.3 g/dL 2-4 Albumin/Globulin Ratio 1.6 1-3 Total Bilirubin 0.9 mg/dL 0.4-1.5 Alkaline Phosphatase 35 U/L 30-110 Alt 18 U/L 14-54 Ast 19 U/L 12-42 Egfr Non- 92.2 >60 Egfr 118.6 >60 38 CBC With Manual 07/13/2011 [facility] White Blood 4.7 CUMM Low 4.8-10.[address] [place] [address] [phone] Red Cell Count 4.35 CUMM 4.2-5.4 Hemoglobin 13.2 g/dL 12.0-16.0 Hematocrit 38 % 35-47 Mean Corpuscular Volume 88 um3 79-97 Mean Corpuscular Hemoglob 30 pg 27-31 Mean Corpuscular HGB Cone 34 g/dL 32-36 Redcell Distribution WDTH 14 % 10.5-15 Platelet Count 208 CUMM 150-450 Mean Platelet Volume 8.6 um3 7.4-10.4 Polysegmented Neutrophil 53 % 38-83 Lymphocyte 37 % 25-47 Monocyte 5 % 0-13 Eosinophil 4 % 0-6 Basophil 1 % 0-2 Absolute Neutrophil Count 2.4 RBC Morphology NORMAL Urine Culture 05/23/2011 [facility] M [address] <SEE NOTE> [place] [address] [phone] Lipid Profile 03/02/2011 [facility] Triglyceride 142 mg/dL 40 -2 (Trig/Chol/HDL [address] ) [place] [address] [phone] Cholesterol 184 mg/dL Less Than 200 40 High Density Lipoprotein 38 mg/dL Low 40-60 41 Cholesterol/HDL Ratio 4.84 AVERAGE High 1-4.44 Low Density Lipoprotein 118 mg/dL High Less Than 100 42 Laboratory test 03/02/2011 [facility] TSH 1.26 MIU/ML 0.34- 5.[address] [place] [address] [phone] Laboratory test 12/23/2010 [facility] NEGATIVE Negative [address] (HCG) [place] [address] [phone] 1 Desirable: <150 Borderline High: 150-199 High: 200-499 Very High: >500 2 Desirable: <200 Borderline High: 200-239 High: >239 3 Low: <40 Desirable: 40-60 High: >60 4 Desirable: <100 Near Optimal: 100-129 Borderline High: 130-159 High: 160-189 Very High: >189 5 Because ethnic data is not always readily available, this report includes an eGFR for both -Americans and non- Americans. The National Kidney Disease Education Program (NKDEP) does not endorse the use of the MDRD equation for patients that are not between the ages of 18 and 70, are , have extremes of body size, muscle mass, or nutritional status, or are non- or non-. According to the National Kidney Foundation, irrespective of diagnosis, the stage of the disease is based on the level of kidney function: Stage Description GFR(mL/min/1.73 m(2)) 1 Kidney damage with normal or decreased GFR 90 2 Kidney damage with mild decrease in GFR 60-89 3 Moderate decrease in GFR 30-59 4 Severe decrease in GFR 15-29 5 Kidney failure <15 (or dialysis) 6 [id number] SEE RESULT BELOW Name: TANJA SPARKS : [address]: Maia Pablo MD Acct: [id number] Unit: [id number] AGE: 46 Location: [facility] Re04/02/17 SEX: F Status: DEP ER SPEC: [id number] AGNES: 04/02/[address] [facility] [address]: Maia Pablo MD REQ: [id number] RECD: 04/02/17 STATUS: ISIAH MUHAMMAD DR: [facility] Radha Segura [employer] _ SOURCE: URINE SPDESC: ORDERED: Urine Culture COMMENTS: [id number] Procedure Result Reported Site Urine Culture Final 04/04/17- 0740 ML Organism 1 [facility] [place] Count >100,000 (Many) CFU/ML 1. [facility] RX --------- ------ Cefazolin <=4 S Cefepime <=1 S Ceftriaxone <=1 S Ciprofloxacin <=0.25 S Gentamicin <=1 S Levofloxacin <=0.12 S Meropenem <=0.25 S Nitrofurantoin <=16 S Tetracycline <=1 S Pipercillin/Tazobactam <=4 S Trimethoprim/Sulfamethoxazole <=20 S Amoxicillin/Clavulanic Acid 4 S Aztreonam <=1 S Contact the Microbiology Department for any additional antibiotic reporting. * ML - MAIN LAB ([id number]) . END OF REPORT * ML=Testing performed at Main Lab DEPARTMENT OF PATHOLOGY, [address] [place] [address] Vick Mary M.D. Director [facility] # [id number] ABNORMAL VAGINAL UTERINE BLEEDING, POLYP OF CORPUS 9 SEE RESULT BELOW Name: TANJA SPARKS : [address]: Marcus Cochran MD Acct: [id number] Unit: [id number] AGE: 46 Location: [facility] Re01/08/17 SEX: F Status: DEP ER SPEC: [id number] AGNES: 01/08/[address] [facility] [address]: Marcus Cochran MD REQ: [id number] RECD: 01/08/17 STATUS: ISIAH MUHAMMAD DR: Radha Segura MORTICIAN HELPER _ SOURCE: URINE SPDESC: ORDERED: Urine Culture Procedure Result Reported Site Urine Culture Final 01/10/17- 09 ML Organism 1 CITROBACTER FREUNDII [place] Count 25-50,000 (Moderate) CFU/ML 1. CITROBACTER FREUNDII M.I.C. RX --------- ------ Cefazolin >=64 R Cefepime <=1 S Ceftriaxone <=1 S Ciprofloxacin <=0.25 S Gentamicin <=1 S Levofloxacin <=0.12 S Meropenem <=0.25 S Nitrofurantoin <=16 S Tetracycline <=1 S Pipercillin/Tazobactam <=4 S Trimethoprim/Sulfamethoxazole <=20 S Amoxicillin/Clavulanic Acid R Aztreonam <=1 S Contact the Microbiology Department for any additional antibiotic reporting. * ML - MAIN LAB ([facility]) . END OF REPORT * ML=Testing performed at Main Lab DEPARTMENT OF PATHOLOGY, [address] [place] [address] Vick Mary M.D. Director [facility] # [id number] 10 SEE RESULT BELOW Name: TANJA SPARKS : [address]: Radha Segura NP Acct: [id number] Unit: [id number] AGE: 46 Location: [facility] Re11/14/16 SEX: F Status: REG REF SPEC: [id number] AGNES: 11/14/[address]: Radha Segura NP REQ: [id number] RECD: 11/14/16 STATUS: COMP _ SOURCE: URINE SPDESC: ORDERED: Urine Culture COMMENTS: [id number] Urine Source: Random Procedure Result Reported Site Urine Culture Final 11/16/16- 0853 ML Organism 1 ESCHERICHIA COLI [place] Count 50-75,000 (Many) CFU/ML 1. ESCHERICHIA COLI M.I.C. RX --------- ------ Ampicillin 8 S Cefazolin <=4 S Cefepime <=1 S Ceftriaxone <=1 S Ciprofloxacin <=0.25 S Gentamicin <=1 S Levofloxacin <=0.12 S Meropenem <=0.25 S Nitrofurantoin <=16 S Tetracycline <=1 S Pipercillin/Tazobactam <=4 S Trimethoprim/Sulfamethoxazole <=20 S Amoxicillin/Clavulanic Acid 4 S Aztreonam <=1 S Contact the Microbiology Department for any additional antibiotic reporting. * ML - MAIN LAB ([facility]) . END OF REPORT * ML=Testing performed at Main Lab DEPARTMENT OF PATHOLOGY, [address] [place] [address] Vick Mary M.D. Director [facility] # [id number] 11 Desirable <150 Borderline high 150-199 High 200-499 Very High >500 12 Desirable <200 Borderline high 200-239 High >239 13 Low <40 Desirable: 40-60 High: >60 14 Desirable: <100 mg/dL Near Optimal: 100-129 mg/dL Borderline High: 130-159 mg/dL High: 160-189 mg/dL Very High: >189 mg/dL 15 Because ethnic data is not always readily available, this report includes an eGFR for both -Americans and non- Americans. The National Kidney Disease Education Program (NKDEP) does not endorse the use of the MDRD equation for patients that are not between the ages of 18 and 70, are , have extremes of body size, muscle mass, or nutritional status, or are non- or non-. According to the National Kidney Foundation, irrespective of diagnosis, the stage of the disease is based on the level of kidney function: Stage Description GFR(mL/min/1.73 m(2)) 1 Kidney damage with normal or decreased GFR 90 2 Kidney damage with mild decrease in GFR 60-89 3 Moderate decrease in GFR 30-59 4 Severe decrease in GFR 15-29 5 Kidney failure <15 (or dialysis) 16 Because ethnic data is not always readily available, this report includes an eGFR for both -Americans and non- Americans. The National Kidney Disease Education Program (NKDEP) does not endorse the use of the MDRD equation for patients that are not between the ages of 18 and 70, are , have extremes of body size, muscle mass, or nutritional status, or are non- or non-. According to the National Kidney Foundation, irrespective of diagnosis, the stage of the disease is based on the level of kidney function: Stage Description GFR(mL/min/1.73 m(2)) 1 Kidney damage with normal or decreased GFR 90 2 Kidney damage with mild decrease in GFR 60-89 3 Moderate decrease in GFR 30-59 4 Severe decrease in GFR 15-29 5 Kidney failure <15 (or dialysis) 17 Desirable <150 Borderline high 150-199 High 200-499 Very High >500 18 Desirable <200 Borderline high 200-239 High >239 19 Low <40 Desirable: 40-60 High: >60 20 Desirable: <100 mg/dL Near Optimal: 100-129 mg/dL Borderline High: 130-159 mg/dL High: 160-189 mg/dL Very High: >189 mg/dL 21 SEE RESULT BELOW Name: TANJA SPARKS : [address]: Radha Segura NP Acct: [id number] Unit: [id number] AGE: 44 Location: [facility] Re11/16/14 SEX: F Status: REG REF SPEC: [id number] AGNES: 11/16/14-[address]: Radha Segura NP REQ: [id number] RECD: 11/16/14 STATUS: COMP _ SOURCE: URINE SPDESC: ORDERED: Urine Culture Procedure Result Verified Site Urine Culture Final 11/18/14- 1137 ML No Growth Day 2 (<1,000 CFU/mL) * ML - MAIN LAB ([facility]) . END OF REPORT * ML=Testing performed at Main Lab DEPARTMENT OF PATHOLOGY, [facility] [employer] [place], [place] [address] Vick Mary M.D. Director [facility] # [id number] RUN DATE: 08/26/14 [facility] LAB LIVE PAGE 1 RUN TIME: [address] [place] [address] Specimen Inquiry Name: TANJA SPARKS : [address]: Radha Segura NP Acct: [id number] Unit: [id number] AGE: 43 Location: [facility] Re08/24/14 SEX: F Status: REG REF SPEC: [id number] AGNES: 08/24/14-[address] [facility] [address]: Radha Segura NP REQ: [id number] RECD: 08/24/14 STATUS: COMP _ SOURCE: URINE SPDESC: ORDERED: Urine Culture QUERIES: Provider Requisition # [id number] Procedure Result Verified Site Urine Culture Final 08/26/14- 1140 ML Organism 1 NORMAL HANNA [place] Count 75-100,000 (Many) CFU/ML * ML - MAIN LAB ([facility]) . END OF REPORT * ML=Testing performed at Main Lab DEPARTMENT OF PATHOLOGY, [address] [place] [address] Vick Mary M.D. Director [facility] # [id number] 23 Desirable <150 Borderline high 150-199 High 200-499 Very High >500 24 Desirable <200 Borderline high 200-239 High >239 25 Low <40 Desirable: 40-60 High: >60 26 Desirable <100 Near Optimal 100-129 Borderline high 130-159 High 160-189 Very High >189 27 Because ethnic data is not always readily available, this report includes an eGFR for both -Americans and non- Americans. The National Kidney Disease Education Program (NKDEP) does not endorse the use of the MDRD equation for patients that are not between the ages of 18 and 70, are , have extremes of body size, muscle mass, or nutritional status, or are non- or non-. According to the National Kidney Foundation, irrespective of diagnosis, the stage of the disease is based on the level of kidney function: Stage Description GFR(mL/min/1.73 m(2)) 1 Kidney damage with normal or decreased GFR 90 2 Kidney damage with mild decrease in GFR 60-89 3 Moderate decrease in GFR 30-59 4 Severe decrease in GFR 15-29 5 Kidney failure <15 (or dialysis) 28 Test Performed by: [facility] - [address] [address] [employer] Torch Operator: Brett Lucas M.D. 29 RUN DATE: 07/18/13 [facility] LAB LIVE PAGE 1 RUN TIME: [address] [place] [address] Specimen Inquiry Name: TANJA SPARKS : [address]: Radha Segura NP Acct: [id number] Unit: [id number] AGE: 42 Location: [facility] Re07/16/13 SEX: F Status: REG REF SPEC: [id number] AGNES: 07/16/13-[address]: Radha Segura NP REQ: [id number] RECD: 07/16/13 STATUS: COMP _ SOURCE: URINE SPDESC: ORDERED: Urine Culture QUERIES: Medent Number [id number] Procedure Result Verified Site Urine Culture Final 07/18/13- 0856 ML Organism 1 ESCHERICHIA COLI [place] Count >100,000 (Many) CFU/ML 1. ESCHERICHIA COLI M.I.C. RX --------- ------ Ampicillin >=32 R Cefazolin <=4 S Cefepime <=1 S Ceftriaxone <=1 S Ciprofloxacin <=0.25 S Gentamicin <=1 S Levofloxacin <=0.12 S Meropenem <=0.25 S Nitrofurantoin <=16 S Tetracycline <=1 S Pipercillin/Tazobactam <=4 S Trimethoprim/Sulfamethoxazole <=20 S Amoxicillin/Clavulanic Acid 4 S Aztreonam <=1 S Contact the Microbiology Department for any additional antibiotic reporting. END OF REPORT * ML=Testing performed at Main Lab DEPARTMENT OF PATHOLOGY, [address] [place] [address] Vick Mary M.D. Director [facility] Permit #[id number] 30 HDL Interpretation: Undesirable: High Risk: Less than 40 mg/dL Desirable: Low Risk: Greater than 60 mg/dL 31 LDL Interpretation: Low Risk Optimal Level: LDL Less than 100 mg/dL Near or Above Optimal: LDL 100-129 mg/dL Borderline High Risk: LDL 130-159 mg/dL High Risk: LDL 160-189 mg/dL Very High Risk: LDL Greater than 189 mg/dL 32 -- REFERENCE VALUE -- 25-HYDROXY D TOTAL (D2+D3) Optimum levels in the healthy population are 20-50, patients with bone disease may benefit from higher levels within this range. Test Performed by: [facility] - [address] [address] Singeing Torch Operator: Aurelio Barrett III, M.D. 33 Because ethnic data is not always readily available, this report includes an eGFR for both -Americans and non- Americans. The National Kidney Disease Education Program (NKDEP) does not endorse the use of the MDRD equation for patients that are not between the ages of 18 and 70, are , have extremes of body size, muscle mass, or nutritional status, or are non- or non-. According to the National Kidney Foundation, irrespective of diagnosis, the stage of the disease is based on the level of kidney function: Stage Description GFR(mL/min/1.73 m(2)) 1 Kidney damage with normal or decreased GFR 90 2 Kidney damage with mild decrease in GFR 60-89 3 Moderate decrease in GFR 30-59 4 Severe decrease in GFR 15-29 5 Kidney failure <15 (or dialysis) 34 RUN DATE: 10/11/12 [facility] LAB LIVE PAGE 1 RUN TIME: [address] [place] [address] Specimen Inquiry Name: TANJA SPARKS Joo : [address]: Piedad Mast MD Acct: [id number] Unit: [id number] AGE: 42 Location: [facility] Re10/09/12 SEX: F Status: REG REF SPEC: [id number] AGNES: 10/09/[address]: Piedad Mast MD REQ: [id number] RECD: 10/09/12 STATUS: COMP _ SOURCE: URINE SPDESC: ORDERED: Urine Culture QUERIES: Medent Number [id number] Procedure Result Verified Site Urine Culture Final 10/11/12- 919 ML Organism 1 ESCHERICHIA COLI [place] Count 75-100,000 (Many) CFU/ML 1. ESCHERICHIA COLI M.I.C. RX --------- ------ Ampicillin 4 S Cefazolin <=4 S Cefepime <=1 S Ceftriaxone <=1 S Ciprofloxacin <=0.25 S Gentamicin <=1 S Imipenem <=0.25 S Levofloxacin <=0.12 S Meropenem <=0.25 S Nitrofurantoin <=16 S Tetracycline <=1 S Pipercillin/Tazobactam <=4 S Trimethoprim/Sulfamethoxazole <=20 S Amoxicillin/Clavulanic Acid 4 S Aztreonam <=1 S Contact the Microbiology Department for any additional antibiotic reporting. END OF REPORT * ML=Testing performed at Main Lab DEPARTMENT OF PATHOLOGY, [address] [place] [address] Vick Mary M.D. Director [facility] Permit #[id number] 35 Because ethnic data is not always readily available, this report includes an eGFR for both -Americans and non- Americans. The National Kidney Disease Education Program (NKDEP) does not endorse the use of the MDRD equation for patients that are not between the ages of 18 and 70, are , have extremes of body size, muscle mass, or nutritional status, or are non- or non-. According to the National Kidney Foundation, irrespective of diagnosis, the stage of the disease is based on the level of kidney function: Stage Description GFR(mL/min/1.73 m(2)) 1 Kidney damage with normal or decreased GFR 90 2 Kidney damage with mild decrease in GFR 60-89 3 Moderate decrease in GFR 30-59 4 Severe decrease in GFR 15-29 5 Kidney failure <15 (or dialysis) 36 HDL Interpretation: Undesirable: High Risk: Less than 40 MG/DL Desirable: Low Risk: Greater than 60 MG/DL 37 LDL Interpretation: Low Risk Optimal Level: LDL Less than 100 MG/DL Near or Above Optimal: LDL 100-129 MG/DL Borderline High Risk: LDL 130-159 MG/DL High Risk: LDL 160-189 MG/DL Very High Risk: LDL Greater than 189 MG/DL 38 Because ethnic data is not always readily available, this report includes an eGFR for both -Americans and non- Americans. The National Kidney Disease Education Program (NKDEP) does not endorse the use of the MDRD equation for patients that are not between the ages of 18 and 70, are , have extremes of body size, muscle mass, or nutritional status, or are non- or non-. According to the National Kidney Foundation, irrespective of diagnosis, the stage of the disease is based on the level of kidney function: Stage Description GFR(mL/min/1.73 m(2)) 1 Kidney damage with normal or decreased GFR 90 2 Kidney damage with mild decrease in GFR 60-89 3 Moderate decrease in GFR 30-59 4 Severe decrease in GFR 15-29 5 Kidney failure <15 (or dialysis) 39 RUN DATE: 05/25/11 [facility] NMI LIVE PAGE 1 RUN TIME: 1100 Specimen Inquiry RUN USER: INTERFACE Name: TANJA SPARKS Accyue#: [id number] Status: VIVEK DUMAS Re05/23/11 Age/Sex: 40/F Unit#: [id number] Location: : [birth year] SPEC #: [id number] AGNES: 05/23/11 STATUS: COMP REQ #: [id number] RECD: 05/23/[address] [facility] [address]: Gordo Mantilla DO SOURCE: URINE ENTR: 05/23/[address] [facility] DR: Rad[facility] ORDERED: URINE C S QUERIES: SPECIMEN DESCRIPTION: URINE, CLEAN CATCH ACT WKST: UR 05/25/11 #1 Procedure Result Verified Site > URINE CULTURE SENSITIVI Final 05/25/11- 1100 ML Organism 1 ESCHERICHIA COLI [place] COUNT 75-100,000 ORGANISMS/ML (MANY) 1. ESCHERICHIA COLI RX M.I.C. ------ --------- AMIKACIN S <=2 LEVOFLOXACIN S <=0.12 AMPICILLIN R >=32 CEFAZOLIN S <=4 CEFTRIAXONE S <=1 CIPROFLOXACIN S <=0.25 GENTAMICIN S <=1 TIGECYCLINE S <=0.5 CEFTAZIDIME S <=1 IMIPENEM S <=1 NITROFURANTOIN S <=16 TRIMETH-SULFA S <=20 *These antibiotics are not available in the [facility] Formulary. Contact the Microbiology Department for any additional antibiotic reporting. - [facility] Permit #[id number] [address] [place] [address] DEPARTMENT OF PATHOLOGY, [address] [place] [address] [facility] Permit #[id number] Joel Ag M.D. [employer] 40 CHOLESTEROL INTERPRETATION: Desirable: Less than 200 MG/DL Borderline-High Risk: 200-239 MG/DL High-Risk: 240 MG/DL and over 41 HDL INTERPRETATION: Undesirable: High Risk: Less than 40 MG/DL Desirable: Low Risk: Greater than 60 MG/DL 42 LDL INTERPRETATION: Low Risk Optimal Level: LDL Less than 100 MG/DL Near or Above Optimal: LDL 100-129 MG/DL Borderline High Risk: LDL 130-159 MG/DL High Risk: LDL 160-189 MG/DL Very High Risk: LDL Greater than 189 MG/DL 43 If is still suspected, please repeat test after 48 to 72 hours. . Procedures Date Code Description Status 11/27/2017 41682 Admin & Interp Of Health Risk Assessment w/ Patient Completed 08/20/2017 40669 Neuroplasty &/Or Transposition; Ulnar Nerve AT Elbow Completed 08/20/2017 61629 Neuroplasty &/Or Transposition; Ulnar Nerve AT Elbow Completed 01/10/2017 [id number] Mammogram Completed 11/14/2016 71228 Admin & Interp Of Health Risk Assessment w/ Patient Completed 12/30/2014 440164291 Diabetic Retinal Eye Exam Completed 06/12/2013 [id number] Mammogram Completed 11/27/2012 [id number] Mammogram Completed 05/29/2012 [id number] Mammogram Completed Encounters Type Date Location Provider Dx Diagnosis Office Visit 01/01/2018 [facility] Javier Ledezma G56.22 Lesion of ulnar 10:15a Of Jhony JACOB nerve, left upper limb Office Visit 11/27/2017 [facility] Internal Radha Segura, Z00.01 Encounter for 8:40a Medicine - N.P. general adult [place] medical exam w abnormal findings I10 Essential (primary) hypertension E78.00 Pure hypercholesterolemia, unspecified Z85.3 Personal history of malignant neoplasm of breast Office Visit 07/20/2017 10:30a Orthopedic Javier G56.22 Lesion of ulnar Services Of [place] nerve, left upper C.M.A. limb Office Visit 07/10/2017 1:20p [facility] Internal Radha Segura, I10 Essential Medicine - N.P. (primary) [place] hypertension F32.9 Major depressive disorder, single episode, unspecified M25.522 Pain in left elbow Office Visit 11/14/2016 9:00a [facility] Internal Radha Segura, Z00.01 Encounter for Medicine - N.P. general adult [place] medical exam w abnormal findings I10 Essential (primary) hypertension Z85.3 Personal history of malignant neoplasm of breast G47.00 Insomnia, unspecified N39.0 Urinary tract infection, site not specified Office Visit 05/15/2016 8:40a [facility] Internal Radha Segura, I10 Essential Medicine - N.P. (primary) [place] hypertension Office Visit 01/18/2016 8:20a [place] [facility] Franco, N64.59 Other signs and Center [facility] AT M.D. symptoms in breast [place] Z85.3 Personal history of malignant neoplasm of breast Office Visit 11/11/2015 9:00a [facility] Internal Radha Segura, Z00.01 Encounter for Medicine - N.P. general adult [place] medical exam w abnormal findings Z85.3 Personal history of malignant neoplasm of breast I10 Essential (primary) hypertension E78.0 Pure hypercholesterolemia N94.3 Premenstrual tension syndrome H61.22 Impacted cerumen, left ear Office Visit 11/16/2014 1:00p [facility] Internal Radha Segura, 788.41 Urinary Medicine - N.P. Frequency [place] 401.1 Hypertension Benign Office Visit 08/24/2014 4:20p [facility] Internal Radha Segura, 599.0 UTI Urinary Medicine - N.P. Tract Infection [place] Site Not Spec 401.1 Hypertension Benign 692.79 Dermatitis Due To Solar Radiation Other Office Visit 05/18/2014 3:20p [facility] Internal Radha Segura, V70.0 Examination Medicine - N.P. General Medical [place] Routine AT Health Care Facility 401.1 Hypertension Benign 272.4 Hyperlipidemia Other Unspec Office Visit 10/17/2013 11:40a [facility] Internal Radha Segura, 401.1 Hypertension Medicine - N.P. Benign [place] Office Visit 07/16/2013 9:00a [facility] Internal Radha Segura, 599.0 UTI Urinary Tract Medicine - N.P. Infection Site Not [place] Spec Office Visit 04/18/2013 9:40a [facility] Internal Radha Segura, V70.0 Examination Medicine - N.P. General Medical [place] Routine AT Health Care Facility 401.1 Hypertension Benign V10.3 History Personal Malignant Neoplasm Breast Office Visit 10/14/2012 9:20a [facility] Internal Radha Segura, 599.0 UTI Urinary Medicine - N.P. Tract Infection [place] Site Not Spec 401.1 Hypertension Benign 401.1 Hypertension Benign Office Visit 10/09/2012 9:00a [facility] Internal Piedad Mast, 599.0 UTI Urinary Medicine - M.D. Tract Infection [place] Site Not Spec 599.0 UTI Urinary Tract Infection Site Not Spec 401.1 Hypertension Benign Office Visit 03/11/2012 10:40a [facility] Internal Radha Segura, V70.0 Examination Medicine - N.P. General Medical [place] Routine AT Health Care Facility 401.1 Hypertension Benign 233.0 Carcinoma Breast Office Visit 09/07/2011 11:40a [facility] Internal Radha Varn, 401.1 Hypertension Medicine - N.P. Benign [place] Office Visit 07/13/2011 10:00a [facility] Radha Varn, 578.1 Blood In Stool Medicine - N.P. Melena [place] Office Visit 03/10/2011 11:00a DO Not Use Radha Varn, V70.0 Examination [facility] N.P. General Medical Routine AT Health Care Facility 401.1 Hypertension Benign 611.72 Lump Or Mass Breast Office Visit 10/31/2010 DO Not Use Radha Varn, 233.0 Carcinoma Breast 1:20p [facility] N.P. Office Visit 09/01/2010 DO Not Use Radha Varn, 401.1 Hypertension 10:00a [facility] N.P. Benign Office Visit 07/05/2010 DO Not Use Radha Varn, 401.1 Hypertension 2:00p [facility] N.P. Benign 786.50 Pain Chest Unspec Office Visit 05/20/2010 9:45a DO Not Use Radha Varn, 786.50 Pain Chest [facility] N.P. Unspec 401.1 Hypertension Benign Office Visit 05/04/2010 10:15a DO Not Use Radha Varn, 786.50 Pain Chest [facility] N.P. Unspec 796.2 Blood Pressure Reading Elevated W/O Hypertension Office Visit 10/29/2009 DO Not Use Radha Varn, 680.6 Carbuncle & 4:15p [facility] N.P. Furuncle Leg Except Foot Office Visit 07/06/2009 DO Not Use Radha Varn, V70.0 Examination 3:00p [facility] N.P. General Medical Routine AT Health Care Facility Plan of Treatment 05/31/2018 - Radha Varn, N.P.I10 Essential (primary) hypertensionComments: For your high blood pressure: Continue with your current medication. I would like you to monitor your blood pressure at home. If your readings at home are consistently higher than 140/90, please call the office.B35.4 Tinea corporisNew Medication:Ketoconazole 2 % - apply once daily to affected areaComments:You have a fungal infection. I have prescribed Ketoconazole cream. Apply this once daily.If your irritation does not clear up, please contact the office.
[2018-06-01 11:13] VITALS: BP 150/89
--- NOTE | 2018-06-01 12:36 | UC ---
FLU HPI - HPI Summary HPI Summary: Pt presents with c/o sudden onset body aches, chills, ST, cough X 1 day. - History of Current Complaint Chief Complaint: UCRespiratory Stated Complaint: THROAT COMPLAINT Time Seen by Provider: 06/01/18 12:15 Hx Obtained From: Patient Hx Last Menstrual Period: 05/17/18 ?: No Onset/Duration: Sudden Onset, Lasting Days, Still Present Severity Currently: Moderate Severity Initially: Moderate Pain Intensity: 5 Associated Signs & Symptoms: Positive: Fever, Myalgia, Sore Throat, Nasal Congestion Related Hx: Possible Flu/Infectious Exposure - Risk Factors Influenza Risk Factors: Negative - Allergy/Home Medications Allergies/Adverse Reactions: Allergies Allergy/AdvReac Type Severity Reaction Status Date / Time No Known Allergies Allergy Verified 06/01/18 11:08 PMH/Surg Hx/FS Hx/Imm Hx Previously Healthy: Yes - Surgical History Surgical History: Yes Surgery Procedure, Year, and Place: Uterine Polyp, 2016, [facility] [place]; Left Breast Lumpectomy, 2010, [place]; T&A, 1982; 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 elbow - Family History Known Family History: Positive: Hypertension - Social History Occupation: Employed Full-time Lives: With Family Alcohol Use: Occasionally Alcohol Amount: 1-2 DRINKS/MONTH Substance Use Type: None Smoking Status (MU): Never Smoked Tobacco Have You Smoked in the Last Year: No Review of Systems All Other Systems Reviewed And Are Negative: Yes Constitutional: Positive: Fever, Chills, Fatigue Skin: Positive: Negative Eyes: Positive: Negative ENT: Positive: Sore Throat Respiratory: Positive: Cough Cardiovascular: Positive: Negative Gastrointestinal: Positive: Negative Genitourinary: Positive: Negative Motor: Positive: Negative Neurovascular: Positive: Negative Musculoskeletal: Positive: Myalgia Neurological: Positive: Negative Psychological: Positive: Negative Is Patient Immunocompromised?: No Physical Exam Triage Information Reviewed: Yes Appearance: Ill-Appearing Vital Signs: Initial Vital Signs Temp 98.8 F 06/01/18 11:09 Pulse 95 06/01/18 11:09 Resp 15 06/01/18 11:09 BP 150/89 06/01/18 11:09 Pulse Ox 100 06/01/18 11:09 Vital Signs Reviewed: Yes Eye Exam: Normal ENT: Positive: Nasal congestion Dental Exam: Normal Neck exam: Normal Respiratory Exam: Normal Cardiovascular Exam: Normal Musculoskeletal Exam: Normal Neurological Exam: Normal Psychological Exam: Normal Skin Exam: Normal Flu Course/Dx - Differential Dx/Diagnosis Differential Diagnosis/HQI/PQRI: Influenza, Upper Respiratory Infection Provider Diagnosis: Viral syndrome Discharge - Sign-Out/Discharge Documenting (check all that apply): Patient Departure All imaging exams completed and their final reports reviewed: No Studies - Discharge Plan Condition: Stable Disposition: HOME Patient Education Materials: Viral Syndrome (ED) Referrals: Radha Segura NP [Primary Care Provider] - If Needed - Billing Disposition and Condition Condition: STABLE Disposition: Home - Attestation Statements Provider Attestation: I was available for consult. This patient was seen by the [facility]. The patient was not presented to, seen by, or examined by me. EK
[2018-06-01 12:46] LABS: Influenza A Molecular NEGATIVE (Negative); Influenza B Molecular NEGATIVE (Negative)
[2018-06-01] MEDS ORDERED: Ibuprofen TAB* 600 MG PO ONE (12:46)
== END 2018-06-01 13:06 | disposition home or self-care (01) ==
LOC: UCCORT 10:38
DX: B34.9 Viral infection, unspecified (principal); J02.9 Acute pharyngitis, unspecified; R52 Pain, unspecified; R68.83 Chills (without fever)
CPT/HCPCS: 99212; A9270-GY; G0463